=== PATIENT | female | born 1990 | race Caucasian/White ===

== ENCOUNTER 2019-04-26 21:40 | Emergency (ER) | payer MEDICAID ==
[2019-04-26] MEDS ORDERED: LIDOCAINE 1%/EPI (MDV) 50 ML INJ INJ (23:30)
[2019-04-26] MEDS: ACETAMINOPHEN 500 MG TAB PO (23:58)
[2019-04-27] MEDS: LIDOCAINE 1%/EPI 30 ML INJ INJ (00:52)
== END 2019-04-27 00:52 | disposition home or self-care (01) ==
LOC: FTE 04-27 00:52
DX: S01.111A Laceration without foreign body of right eyelid and periocular area, initial encounter (principal); W25.XXXA Contact with sharp glass, initial encounter; Y92.9 Unspecified place or not applicable
CPT/HCPCS: 12013; 99282-25